=== PATIENT | male | born 1995 | race Caucasian/White ===

== ENCOUNTER → 2022-04-15 13:49 | Outpatient (BNVA) | payer OTHER, SELFPAY | PROVIDERS: PCP Pediatrics; Visit Provider Physician Assistant | DX: L03.012 Cellulitis of left finger (principal); Z23 Encounter for immunization | CPT/HCPCS: 73140; 99204 ==

== ENCOUNTER → 2022-04-19 09:38 | Outpatient (BNVA) | payer OTHER, SELFPAY | PROVIDERS: PCP Pediatrics; Visit Provider Physician Assistant Medical | DX: S61.241A Puncture wound with foreign body of left index finger without damage to nail, initial encounter (principal); W45.8XXA Other foreign body or object entering through skin, initial encounter; L03.012 Cellulitis of left finger; Z18.10 Retained metal fragments, unspecified | CPT/HCPCS: 87070; 87205; 99214 ==

== ENCOUNTER → 2022-04-21 08:26 | Outpatient (BNVA) | payer OTHER, SELFPAY | PROVIDERS: PCP Pediatrics; Visit Provider Physician Assistant Medical | DX: S61.241A Puncture wound with foreign body of left index finger without damage to nail, initial encounter (principal); W45.8XXA Other foreign body or object entering through skin, initial encounter; L03.012 Cellulitis of left finger; Z18.10 Retained metal fragments, unspecified | CPT/HCPCS: 99213 ==

== ENCOUNTER → 2022-04-26 13:18 | Outpatient (BNVA) | payer OTHER, SELFPAY | PROVIDERS: PCP Pediatrics; Visit Provider Physician Assistant Medical | DX: L03.012 Cellulitis of left finger (principal); L98.8 Other specified disorders of the skin and subcutaneous tissue | CPT/HCPCS: 99213 ==

== ENCOUNTER 2022-04-27 11:37 | Outpatient (REF) | payer OTHER, SELFPAY ==
--- NOTE | ~2022-04-27 | XR_ITS ---
EXAMINATION: XR HAND, LEFT CLINICAL INFORMATION: Pain COMPARISON: None TECHNIQUE: PA, lateral, and oblique views of the left hand. FINDINGS: The bones and soft tissues are normal. No fracture. Alignment is anatomic. Joint spaces are maintained. No erosions or soft tissue calcifications. XR/XR hand LT min 3V IMPRESSION: No fracture or dislocation.
== END 2022-04-27 11:38 | disposition home or self-care (01) ==
LOC: HO.HOSX 11:37
PROVIDERS: Visit Provider Orthopaedic Surgery
DX: M79.642 Pain in left hand (principal); L03.012 Cellulitis of left finger; M79.5 Residual foreign body in soft tissue
CPT/HCPCS: 73130; 99202

== ENCOUNTER → 2022-04-29 11:12 | Outpatient (BNVA) | payer OTHER, SELFPAY | PROVIDERS: Visit Provider Physician Assistant Medical | DX: L03.012 Cellulitis of left finger (principal); L98.8 Other specified disorders of the skin and subcutaneous tissue | CPT/HCPCS: 99213 ==

== ENCOUNTER → 2022-05-18 10:18 | Outpatient (BNVA) | payer OTHER, SELFPAY | PROVIDERS: Visit Provider Physician Assistant | DX: L03.011 Cellulitis of right finger (principal); L03.012 Cellulitis of left finger; W45.8XXA Other foreign body or object entering through skin, initial encounter | CPT/HCPCS: 73130; 99203 ==

== ENCOUNTER → 2022-05-25 10:26 | Outpatient (BNVA) | payer OTHER, SELFPAY | PROVIDERS: Visit Provider Physician Assistant Medical | DX: L03.011 Cellulitis of right finger (principal); L03.012 Cellulitis of left finger; S60.121A Contusion of right index finger with damage to nail, initial encounter; W45.8XXA Other foreign body or object entering through skin, initial encounter | CPT/HCPCS: 87070; 87077; 87186; 87205; 99213 ==

== ENCOUNTER → 2022-05-27 09:14 | Outpatient (BNVA) | payer OTHER, SELFPAY | PROVIDERS: Visit Provider Physician Assistant | DX: L03.011 Cellulitis of right finger (principal); B95.62 Methicillin resistant Staphylococcus aureus infection as the cause of diseases classified elsewhere; Z16.29 Resistance to other single specified antibiotic | CPT/HCPCS: 99213 ==

== ENCOUNTER → 2022-06-01 13:00 | Outpatient (BNVA) | payer OTHER, SELFPAY | PROVIDERS: Visit Provider Physician Assistant Medical | DX: L03.011 Cellulitis of right finger (principal); B95.62 Methicillin resistant Staphylococcus aureus infection as the cause of diseases classified elsewhere; Z16.29 Resistance to other single specified antibiotic | CPT/HCPCS: 99213 ==